=== PATIENT | male | born 1970 | race Caucasian/White ===

== ENCOUNTER 2016-05-06 08:01 | Emergency (ER) | payer OTHER ==
[~2016-05-06] VITALS: Ht 180.3 cm; Wt 106.6 kg
[~2016-05-06 08:01] MED LIST: AUGMENTIN 500-1 EACH PO; ZOLPIDEM TARTRA10 M1 PO
[2016-05-06 08:06] VITALS: BP 135/86
--- NOTE | 2016-05-06 08:24 | ED GENERAL ADULT ---
History of Present Illness General Chief Complaint: Suture Removal/Wound Recheck Stated Complaint: SUTURE REMOVAL Source: patient, old records Exam Limitations: no limitations Vital Signs & Intake/Output Vital Signs & Intake/Output Vital Signs Date Time Temp Pulse Resp B/P Pulse O2 O2 Flow FiO2 Ox Delivery Rate 05/06 0806 98.4 79 18 135/86 99 Room Air Allergies Coded Allergies: No Known Allergies (04/29/16) Reconcile Medications Augmentin (Augmentin 500-125 Tablet) 500 MG-125 MG TABLET 1 TAB PO BID LACERATION Zolpidem Tartrate 10 MG TABLET 1.5 TAB PO QPMP SLEEP HELP (Reported) Triage Note: 45 Y/O MALE REQUESTING SUTURE REMOVAL FROM L HIP; 1 OR 2 PLACED 1 WEEK AGO TODAY. PT DENIES COMPLAINTS AND STATES SITE APPEARS WELL HEALED. Triage Nurses Notes Reviewed? yes Onset: Last week Duration: day(s): (7) Timing: no prior history Injury Environment: home Severity: mild Severity Numbers: 1 No Modifying Factors: none HPI: Patient is a 45-year-old male that was seen and evaluated here 7 days ago for a laceration on the left hip. Patient reports he is here for suture removal. He reports it's been healing up well. No increased redness pain or swelling. Denies fevers or chills. No complaints. (MAIRO TRAN) Past History Travel History Traveled to [place] past 21 day No Medical History Any Pertinent Medical History? see below for history Neurological: NONE EENT: SLEEP APNEA Cardiovascular: NONE Respiratory: NONE Gastrointestinal: NONE Hepatic: NONE Renal: NONE Musculoskeletal: NONE Psychiatric: NONE Endocrine: NONE Blood Disorders: NONE Cancer(s): NONE [employer]/Reproductive: NONE Surgical History Surgical History: non-contributory Psychosocial History What is your primary language Persian Tobacco Use: Quit >30 days ago Family History Hx Contributory? No (MARIO TRAN) Review of Systems Review of Systems Constitutional: Reports: no symptoms. Comments Review of systems: See HPI, All other systems negative. Constitutional, no chills fever or weight loss HEENT: No visual changes no sore throat no congestion Cardiovascular: No chest pain Skin, no jaundice no rashes Respiratory: No dyspnea cough GI: No nausea no vomiting Muscle skeletal: no back pain, no neck pain, Neurologic: No numbness Immunology: No splenectomy or history of AIDS (MARIO TRAN) Physical Exam Physical Exam General Appearance: well developed/nourished, no apparent distress, alert, comfortable Comments: Well-developed well-nourished no apparent distress. HEENT: Atraumatic, extraocular motion intact Neck: Supple, no lymphadenopathy Back: Nontender Respiratory: No respiratory distress Extremities: No edema, full range of motion Skin: Well-healing 1 cm linear laceration noted over the left hip, scabbing present with one suture in place. No surrounding erythema or edema. Nontender to palpation. Neuro: Alert and oriented x3 Psych: Mood affect normal, normal memory normal judgment. Core Measures ACS in differential dx? No CVA/TIA Diagnosis: No Severe Sepsis Present: No Septic Shock Present: No (MARIO TRAN) Progress Differential Diagnoses I considered the following diagnoses in my evaluation of the patient: Suture removal, wound check, cellulitis, laceration, abrasion Plan of Care: One suture removed without difficulty. Wound is well adhered. Initial ED EKG: none (MARIO TRAN) Departure Departure Time of Disposition: 822 Disposition: HOME OR SELF CARE Condition: Stable Clinical Impression Primary Impression: Visit for suture removal Referrals: BUD RUCKER,Alicia COLVIN (PCP/Family) Referred to [facility] as new patient No Additional Instructions: Follow-up with your primary care physician call TO MAKE appointment. Keep wound clean, apply bacitracin daily. Return for worsening symptoms or concerns. Departure Forms: Customer Survey General Discharge Information (MARIO TRAN) PA/FISHING GUIDE Co-Sign Statement Statement: ED Attending supervision documentation- [] I saw and evaluated the patient. I have also reviewed all the pertinent lab results and diagnostic results. I agree with the findings and the plan of care as documented in the PA's/FISHING GUIDE's documentation. x I have reviewed the ED Record and agree with the PA's/FISHING GUIDE's documentation. [] Additions or exceptions (if any) to the PAs/FISHING GUIDE's note and plan are summarized below: [] (MANJIT RUCKER,DEBI) Critical Care Note Critical Care Note Critical Care Time: non-applicable (MARIO TRAN)
== END 2016-05-06 08:44 ==
LOC: ERH 08:01
DX: Z48.02 Encounter for removal of sutures (principal)
CPT/HCPCS: 99281